=== PATIENT | female | born 1965 ===

== ENCOUNTER 2017-07-08 06:16 | Inpatient (IN) | payer MEDICAID ==
[2017-07-02 10:34] VITALS: BMI 22.1
[2017-07-08] MEDS ORDERED: ceFAZolin IV 1 gm in Dextrose 1 GM/50 ML BAG IVPB ONE (07:23)
[2017-07-08] MEDS ORDERED: Propofol 10 mg/ml Inj (20 ML) ONE (07:25)
[2017-07-08] MEDS ORDERED: ePHEDrine 50 mg/ml Inj ONE (07:25)
[2017-07-08] MEDS ORDERED: Midazolam 2 MG/2 ML VIAL ONE (07:25)
[2017-07-08] MEDS ORDERED: Lidocaine 4% (Laryng-O-Jet) Kit MM ONE (07:26)
[2017-07-08] MEDS ORDERED: Rocuronium 10 mg/ml (5 ml) ONE (07:26)
[2017-07-08] MEDS ORDERED: Succinylcholine 200 mg/10 ml Inj IV ONE (07:26)
[2017-07-08] MEDS ORDERED: Phenylephrine 10 mg/ml Inj ONE (07:32)
[2017-07-08] MEDS ORDERED: Lactated Ringer's 1,000 ML IV ONE ×3 (08:20→08:55)
[2017-07-08] MEDS ORDERED: Dexamethasone 4 mg/1 ml ONE (08:37)
[2017-07-08] MEDS ORDERED: Bupivacaine-Epi 0.5%-1:200,000 PF Inj IJ ONE ×3 (08:45)
[2017-07-08] MEDS ORDERED: HEMOSTATIC MATRIX 10 ML DIS.NEEDLE TOP ONE ×2 (08:50→10:10)
[2017-07-08] MEDS ORDERED: Neostigmine Methylsulfate 2 MG/2 ML ML IV ONE (10:08)
--- NOTE | 2017-07-08 10:36 | CP.PCM.PN ---
Subjective - Date & Time of Evaluation Date of Evaluation: 07/08/17 Time of Evaluation: 10:33 - Subjective Subjective: [place] [employer] reviewed. Last rx for percocet filled 12/03/[address] Jase Paula. Patient counseled on the risks of addiction, physical or psychological dependence, and overdose associated with opioid drugs and the danger of taking opioid drugs with alcohol and other central nervous system depressants, and cautioned patient on storage and disposal. Objective - Vital Signs/Intake and Output Vital Signs (last 24 hours): Temp Pulse Resp BP Pulse Ox 97.5 F L 68 18 118/70 98 07/08/17 07:32 07/08/17 07:32 07/08/17 07:32 07/08/17 07:32 07/08/17 07:32 Intake and Output: 07/08/17 07/08/17 06:59 18:59 Intake Total 1700 Output Total 600 Balance 1100
[2017-07-08] MEDS: HYDROmorphone 0.5 mg/0.5 ml ISec IVP PRN ×4 (11:00→13:00)
--- NOTE | 2017-07-08 11:36 | PCM.SURG1 ---
Surgeon's Initial Post Op Note - Surgeon's Notes Surgeon: Ann Marie Arellano MD Sports Management Professor: Hayden RIVAS Type of Anesthesia: General Endo, Local Anesthesia Administered By: Milagro Zelaya MD Pre-Operative Diagnosis: Chronic pelvic pain. Fibroids. Urinary incontinence Operative Findings: Bulky uterus fibroids, extensive adhesions, bowel and peritineal adhesions. Normal appearing bladder and ureters anatomy, urine efluxing freely. Post-Operative Diagnosis: Chronic pelvic pain. Fibroids. Urinary incontinence. Extensive pelvic adhession Operation Performed: Total Robotic Hysterectomy Bilateral Salpingo Oophorectomy >250g. Uterosacroligament suspenssion. Extensive lysis of adhessions. Cystoscopy Specimen/Specimens Removed: uterus, cervix, tubes and ovaries Estimated Blood Loss: EBL {In ML}: 10 Blood Products Given: N/A Drains Used: No Drains Post-Op Condition: Good Date of Surgery/Procedure: 07/08/17 Time of Surgery/Procedure: 11:36
--- NOTE | 2017-07-08 15:51 | PCM.OP ---
Operative Report - Operative Report Date of Surgery/Procedure: 07/08/17 Time of Surgery/Procedure: 10:00 Surgeon: Ann Marie Arellano MD Tool Crib Supervisor: Hayden RIVAS Anesthesia/Sedation: General with ET tube Pre-Operative Diagnosis: Chronic pelvic pain. Fibroid uterus. Urinary incontinence. Prolapse uterus Post-Operative Diagnosis: Chronic pelvic pain. Fibroid uterus. Urinary incontinence. Prolapse uterus. Extensive bowel adhessions Indication for Surgery: Worseing pelvic pain, urinary incontinence Operative Findings: Bulky enlarged prolpased fibroid uterus. Extensive peritoneal adhessions and bowel adhessions. normal bladder anatomy and ureters efluxing urine freely. Procedure/Operation Description: 1. Total Robotic Hysterectomy Bilateral Salpingo Oophorectomy >250g. 2. Uterosacroligament suspenssion. 3. Extensive lysis of adhessions. 4. Cystoscopy. Detailed Operative Report. This is a 52 years old female with symptomatic uterine prolapse, enlarged fibroid uterus , and urinary incontinence. The patient completed an extensive preoperative workup, which included an ultrasound, as well as a pap smear, chemistry and hematology studies. The patient reported these symptoms and problems as debilitating, and adversely affecting her quality of life. Following a period of failed conservative management, and patient decision was made to proceed with a more invasive approach to address the above noted problems. A decision was finally made to proceed with a total robotic assisted hysterectomy, bilateral salpingoophorectomy, and vaginal vault suspension. A detailed description of this robotic procedure was given to the patient, all risks and benefits of the surgical modality was reviewed, printed material was also given to the patient regarding robotic surgery. The patient fully understood all the risks and benefits and elected to proceed with this proposed procedure. After proper consent was obtained from the patient was taken to the operating room, proper patient identification was completed. She was placed in dorsal lithotomy position; general anesthesia was induced without difficulty. Her legs were placed in adjustable Brennen stirrups. Careful attention was placed not to over-flex or over-rotate the lower extremities at the hip or the knee joints. She was prepped and draped appropriately for robotic assisted hysterectomy. Brown catheter was inserted under sterile conditions. A weighted speculum was placed in the vagina, anterior lip of cervix was grasped with a tenaculum, and a Harry and David-care uterine manipulator was inserted through the cervix and secured. The weighted speculum and tenaculum were removed from the patient's vagina and attention was turned to the patient's abdomen. Local anesthetic solutions of 0.25% Marcaine with epinephrine were utilized to infiltrate the skin prior to all abdominal skin incisions. A total of 15 mL of 0.25% Marcaine was utilized throughout the procedure. While tenting the abdominal wall, a Veres needle was inserted through the umbilicus and a pneumoperitoneum was obtained. Approximately 1 cm below the umbilical fold, in the midline, a 1 cm incision was made with a scalpel and a trocar and sleeve were introduced. A robotic camera was inserted and an initial survey of the patient's abdomen revealed an enlarged bulky uterus, boggy in appearance c/w fibroids and possible adenomyosis. Both ovaries appeared normal with normal appearing fallopian tubes. Extensive intrapelvic adhessions and bowel adhessions throughout the abdominal and pelvic cavity. The patient was placed in Trendelenburg position ready for a da Asmita robotic system to be docked. 3 robotic ports were utilized for this procedure. The first robotic port was placed on the patient's left side approximately 5 cm superior to the superior crest on the patient's left side, the second robotic port was placed 8 cm right lateral to the camera port and the third robotic port was placed approx. 5 centimeters superior to the right superior iliac crest. An care assistant port was placed 8 cm left lateral to the camera port in the midline. For the care assistant port we utilized the Versa step trocar system. All trocars were inserted under direct visualization. The placement of the trocars was all accomplished under careful and meticulous placement under direct visualization. Following the placement of all trocars, the da Asmita robotic system was docked in a parallel fashion without difficulty. The following instruments were utilized for this procedure: the bipolar cautery device, a monopolar russel and finally a ProGrasp. Prior to the start of the hysterectomy, both ureters and their courses were visualized, peristalsis bilaterally. On the patient's right side, the IP and the round ligaments were identified cauterized and transected, the broad ligament was divided all the way down to the utero cervical junction bladder flap was then created by transecting the visceroperitoneum over the bladder reflection. In a similar fashion, the left round ligament, IP ligament and broad ligament were cauterized sealed and transected, taken down to the level of the cervical uterine junction. Uterine vessels on both sides were sealed and transected. The Uterosacral ligaments were sealed and transected. The monopolar russel and PK were utilized to complete the colpotomy incision around the care vaginal ring. Excellent hemostasis was noted. The uterus, cervix, ovaries and fallopian tubes were delivered transvaginal through the colpotomy incision and sent to pathology for permanent analysis. The colpotomy incision was closed with 2-0 v LOC in a continuous fashion with excellent hemostasis. The vaginal vault suspension was achieved by suspending the vaginal cuff to the base of the uterosacral ligaments bilaterally. For uterosacral ligament suspension portion of the procedure, the ureters were once again identified to avoid possible compromise or kinking while suspending the vaginal vault. A 2-0 permanent suture material (Cambridge-Uri) was utilized to suspend the uterosacral ligaments from the base to the vaginal vault cuff incision including both anterior and posterior aspect of the colpotomy incision. Utilizing a 3-0 Monocryl suture, the peritoneum over the colpotomy incision and uterosacral ligaments was re-approximated in a continuous fashion. The abdomen was throughout irrigated and cleared of all clots and debris. FloSeal as well as Interceed was applied to the incision sites. Excellent hemostasis was again noted. All robotic and laparoscopic instruments removed under direct visualization. The robotic arms were undocked, and a da Asmita robotic system was wheeled away from the patient's bedside. Both care assistant and camera ports were closed at the fascial layer utilizing a 2-0 Vicryl suture material in interrupted fashion. Pneumoperitoneum was reduced and all skin incisions were closed utilizing 4-0 Monocryl in a subcutaneous fashion. Dermabond was applied to all incisions. At the conclusion of this hysterectomy , a diagnostic cystoscopy was completed. The Brown catheter was removed; the bladder was distended with approximately 350 cc of normal saline. A 30 cystoscope was introduced and a survey of the bladder anatomy was completed. The base, and the dome of the bladder appeared normal, both ureteral orifices appeared normal and were efluxing urine freely. The urethra appeared normal. A Brown catheter was reinserted. Vaginal packing was inserted to be removed the next morning. Patient emerged from general anesthesia without difficulty, and was taken to recovery room in stable condition. Prior to incision the patient received antibiotics, prior to closure sponge lap and needle counts were correct x2. Estimated Blood Loss: 20 Blood Replaced: none Sponge/Instrument Count: correct times 2 Drains: none Complications: none Specimen: uterus cervix tubes and ovaries Discharge & Condition: discharged in stable condition
[2017-07-08] MEDS: Lactated Ringer's 1,000 ML IV SCH (16:15)
[2017-07-08] MEDS: Oxycodone/Acetaminophen 5/325 mg Tab PO PRN ×2 (16:22→22:27)
[2017-07-08] MEDS: ceFAZolin IV 1 gm in Dextrose 1 GM/50 ML BAG IVPB SCH (18:11)
[2017-07-09] MEDS: Lactated Ringer's 1,000 ML IV SCH ×2 (00:14→09:58)
[2017-07-09] MEDS: ceFAZolin IV 1 gm in Dextrose 1 GM/50 ML BAG IVPB SCH (01:45)
[2017-07-09] MEDS: Oxycodone/Acetaminophen 5/325 mg Tab PO PRN ×3 (06:24→21:13)
[2017-07-09] MEDS ORDERED: ceFAZolin IV 1 gm in Dextrose 1 GM/50 ML BAG IVPB ONE (07:45)
[2017-07-09 07:48] LABS: HEMATOCRIT 31.6 % (34.0-47.0); MEAN CELL VOLUME 90.5 fl (81.0-99.0); MEAN CORPUSCULAR HEMOGLOBIN 30.5 pg (27.0-31.0); MEAN CORPUSCULAR HGB CONC 33.7 g/dL (33.0-37.0); RED CELL DISTRIBUTION WIDTH 14.4 % (11.5-14.5); WHITE BLOOD COUNT 10.5 K/uL (4.8-10.8)
[2017-07-09 08:30] LABS: BLOOD UREA NITROGEN 5 mg/dl (7-17); CALCIUM 8.2 mg/dL (8.4-10.2); CARBON DIOXIDE 29 mmol/L (22-30); CHLORIDE 106 mmol/L (98-107); GFR AFRICAN-AMERICAN > 60; GLUCOSE,RANDOM 79 mg/dL (65-105); POTASSIUM 3.8 MMOL/L (3.6-5.0); SODIUM 140 mmol/l (132-148)
--- NOTE | 2017-07-09 12:23 | CP.PCM.PN ---
Subjective - Date & Time of Evaluation Date of Evaluation: 07/09/17 Time of Evaluation: 08:00 - Subjective Subjective: Patient states she is still having a lot of pain. She says the medication helps , but she has difficulty sitting up due to pain. Denies any vaginal bleeding. Patient also complaining of neck pain, but says she has neck pain in the past. + void Objective - Vital Signs/Intake and Output Vital Signs (last 24 hours): Temp Pulse Resp BP Pulse Ox 99.5 F 89 18 92/53 L 99 07/09/17 08:10 07/09/17 08:10 07/09/17 08:10 07/09/17 08:10 07/09/17 09:00 Intake and Output: 07/09/17 07/09/17 06:59 18:59 Intake Total 2500 Output Total 2800 500 Balance -300 -500 - Medications Medications: Current Medications Lactated Ringer's (Lactated Ringer's) 1,000 mls @ 125 mls/hr IV .Q8H SANJANA Last Admin: 07/09/17 09:58 Dose: 125 mls/hr Morphine Sulfate (Morphine) 4 mg IVP Q4 PRN PRN Reason: Pain, severe (8-10) Last Admin: 07/09/17 09:55 Dose: 4 mg Ondansetron HCl (Zofran Inj) 4 mg IVP Q6 PRN PRN Reason: Nausea/Vomiting Oxycodone/Acetaminophen (Percocet 5/325 Mg Tab) 2 tab PO Q4 PRN PRN Reason: Pain, moderate (4-7) Stop: 07/11/17 10:38 Last Admin: 07/09/17 06:24 Dose: 2 tab - Labs Labs: 07/09/17 07:41 07/09/17 07:41 - GI/Abdominal Exam GI & Abdominal Exam: Soft, Tenderness Additional comments: minimal distension incisions intact, no erythema Assessment and Plan (1) Chronic pelvic pain in female Assessment & Plan: POD# 1 s/p robotic assisted total vaginal hysterectomy, lysis of adhesions, BSO , uterosacral lig suspension, cysto -OOB, will see how pt feels in the afternoon if she can be discharged home later -d/w Dr. Arellano, agrees with above Status: Acute (2) Urinary incontinence Status: Acute (3) Fibroid, uterine Status: Acute
[2017-07-09 16:26] VITALS: RESP 20
[2017-07-10 02:48] VITALS: TEMP 99.3
[2017-07-10 06:22] VITALS: O2SAT 98
--- NOTE | 2017-07-10 08:20 | CP.PCM.PN ---
Subjective - Date & Time of Evaluation Date of Evaluation: 07/10/17 Time of Evaluation: 08:18 - Subjective Subjective: Patient complaining of headache and continued neck pain. Home medications restarted. ABd pain is much better today. Objective - Vital Signs/Intake and Output Vital Signs (last 24 hours): Temp Pulse Resp BP Pulse Ox 99.3 F 74 20 115/68 98 07/10/17 05:00 07/10/17 05:00 07/10/17 05:00 07/10/17 05:00 07/10/17 05:00 Intake and Output: 07/10/17 07/10/17 06:59 18:59 Intake Total 925 Balance 925 - Medications Medications: Current Medications Acetaminophen (Tylenol 325mg Tab) 650 mg PO Q4 PRN PRN Reason: Headache Last Admin: 07/10/17 03:00 Dose: 650 mg Ketorolac Tromethamine (Toradol) 30 mg IVP PRN PRN PRN Reason: Pain, Mild (1-3) Levothyroxine Sodium (Synthroid) 112 mcg PO DAILY@0630 [facility] Morphine Sulfate (Morphine) 4 mg IVP Q4 PRN PRN Reason: Pain, severe (8-10) Last Admin: 07/09/17 09:55 Dose: 4 mg Multivitamins/Minerals (Therapeutic-M Tab) 1 tab PO DAILY [facility] Ondansetron HCl (Zofran Inj) 4 mg IVP Q6 PRN PRN Reason: Nausea/Vomiting Oxycodone/Acetaminophen (Percocet 5/325 Mg Tab) 2 tab PO Q4 PRN PRN Reason: Pain, moderate (4-7) Stop: 07/11/17 10:38 Last Admin: 07/09/17 21:13 Dose: 2 tab Spironolactone (Aldactone) 50 mg PO DAILY SANJANA - Labs Labs: 07/09/17 07:41 07/09/17 07:41 - GI/Abdominal Exam GI & Abdominal Exam: Soft Additional comments: minimally tender, incisions intact, dry, no erythema. no vaginal bleeding, passing gas Assessment and Plan (1) Chronic pelvic pain in female Assessment & Plan: POD#2 s/p robotic assisted hysterectomy -restart home meds -flexeril for neck pain -d/c home today -f/u Dr. Arellano in office call for appt -rx percocet -d/w adan Hooper with above Status: Acute (2) Urinary incontinence Status: Acute (3) Fibroid, uterine Status: Acute
--- NOTE | 2017-07-10 08:20 | CP.PCM.DIS ---
Provider - Provider Date of Admission: 07/08/17 10:40 Attending physician: Ann Marie Arellano MD Primary care physician: Manny Hamilton MD Time Spent in preparation of Discharge (in minutes): 5 Diagnosis - Discharge Diagnosis (1) Chronic pelvic pain in female Status: Acute (2) Urinary incontinence Status: Acute (3) Fibroid, uterine Status: Acute (4) Acute blood loss anemia Status: Acute Comment: hemodynamically stable Hospital Course - Lab Results Lab Results: Most Recent Lab Values WBC 10.5 K/uL (4.8-10.8) D 07/09/17 07:41 RBC 3.49 Mil/uL (3.80-5.20) L 07/09/17 07:41 Hgb 10.7 g/dL (12.0-16.0) L D 07/09/17 07:41 Hct 31.6 % (34.0-47.0) L 07/09/17 07:41 MCV 90.5 fl (81.0-99.0) 07/09/17 07:41 MCH 30.5 pg (27.0-31.0) 07/09/17 07:41 MCHC 33.7 g/dL (33.0-37.0) 07/09/17 07:41 RDW 14.4 % (11.5-14.5) 07/09/17 07:41 Plt Count 248 K/uL (130-400) 07/09/17 07:41 Sodium 140 mmol/l (132-148) 07/09/17 07:41 Potassium 3.8 MMOL/L (3.6-5.0) 07/09/17 07:41 Chloride 106 mmol/L (98-107) 07/09/17 07:41 Carbon Dioxide 29 mmol/L (22-30) 07/09/17 07:41 Anion Gap 9 (10-20) L 07/09/17 07:41 BUN 5 mg/dl (7-17) L 07/09/17 07:41 Creatinine 0.5 mg/dl (0.7-1.2) L 07/09/17 07:41 Est GFR ( Amer) > 60 07/09/17 07:41 Est GFR (Non-Af Amer) > 60 07/09/17 07:41 Random Glucose 79 mg/dL (65-105) 07/09/17 07:41 Calcium 8.2 mg/dL (8.4-10.2) L 07/09/17 07:41 Serum HCG, Qual Negative (NEGATIVE) 07/08/17 06:43 Blood Type O POSITIVE 07/08/17 06:40 Antibody Screen Negative 07/08/17 06:40 BBK History Checked Patient has bt 07/08/17 06:40 - Hospital Course Hospital Course: 52F with PMH: hypothyroidism chronic neck pain c/o chronic pelvic pain and urinary incontinence elected for robotic assisted hysterectomy, BSO, uterosacral lig suspension and cysto. Patient tolerated procedure well. Patient had post operative pain complicated by periods of dizziness with ambulation POD# 1 and therefore was monitored as inpatient until resolved and pain controlled, then discharged home on pod#2. Acute blood loss anemia was well tolerated hemodynamically stable. Patient was instructed to f/u [address] Arellano and to call office for appointment, and to call office with any concerns. Discharge Plan - Discharge Medications Prescriptions: oxyCODONE/Acetaminophen [Percocet 5/325 mg Tab] 2 ea PO Q4H PRN #30 tab PRN Reason: Pain, Moderate (4-7) - Follow Up Plan Condition: GOOD Disposition: HOME/ ROUTINE Instructions: Oxycodone/Acetaminophen (By mouth), Surgical Site Infections (GEN ), Robot Assisted Laparoscopic Hysterectomy (DC) Additional Instructions: ANY PROBLEMS CALL DOCTOR OR GO TO EMERGENCY ROOM 911 FOR EMERGENCY NO HEAVY LIFTING OR STRENUOUS EXERCISE NO DOUCHING NO TAMPONS NO TUB BATHS MAY SHOWER AND CALL DR. ARELLANO'S OFFICE FOR FOLLOW-UP APPOINTMENT. CONTINUE ALL MEDICATIONS FROM HOME PER DEANDRA RIVAS Referrals: Manny Hamilton MD [Primary Care Provider] - Ann Marie Arellano MD [Staff Provider] -
[2017-07-10] MEDS ORDERED: Multivitamin With Minerals Tab PO SCH (09:00)
[2017-07-10] MEDS ORDERED: Levothyroxine 112 MCG TAB PO SCH (09:00)
[2017-07-10] MEDS ORDERED: MULTIVITAMIN WITH IRON PO SCH (09:00)
[2017-07-10] MEDS: Oxycodone/Acetaminophen 5/325 mg Tab PO PRN (09:55)
[2017-07-10 10:30] VITALS: BP 126/72; PULSE 88
== END 2017-07-10 13:00 | disposition home or self-care (01) | DRG 358 ==
LOC: H.OPSURG 06:16 → H.PEDS 10:40
PROVIDERS: ADMIT Obstetrics & Gynecology; ATTEND Obstetrics & Gynecology
PROC: 0UT7FZZ Resection of Bilateral Fallopian Tubes, Via Natural or Artificial Opening With Percutaneous Endoscopic Assistance (ICD-10-PCS; 2017-07-08)
PROC: 0TSD4ZZ Reposition Urethra, Percutaneous Endoscopic Approach (ICD-10-PCS; 2017-07-08)
PROC: 8E0W4CZ Robotic Assisted Procedure of Trunk Region, Percutaneous Endoscopic Approach (ICD-10-PCS; 2017-07-08)
PROC: 0UT9FZZ Resection of Uterus, Via Natural or Artificial Opening With Percutaneous Endoscopic Assistance (ICD-10-PCS; principal; 2017-07-08 07:45)
PROC: 0UT2FZZ Resection of Bilateral Ovaries, Via Natural or Artificial Opening With Percutaneous Endoscopic Assistance (ICD-10-PCS; 2017-07-08 07:45)
DX: D25.1 Intramural leiomyoma of uterus (principal); D62 Acute posthemorrhagic anemia; R32 Unspecified urinary incontinence; N81.4 Uterovaginal prolapse, unspecified; E03.9 Hypothyroidism, unspecified; N80.0 Endometriosis of uterus; N83.292 Other ovarian cyst, left side; N83.291 Other ovarian cyst, right side; G89.29 Other chronic pain